=== PATIENT | male | born 1970 | race Hispanic/Latino ===

== ENCOUNTER 2018-04-14 07:58 | Day surgery (SDC) | payer BC ==
--- NOTE | 2018-04-10 16:34 | RAD REPORT ---
EXAM DESCRIPTION: Amina Kingsley (2 Views)04/10/2018 3:54 pm CLINICAL HISTORY: Hypertension/ preop for hernia surgery COMPARISON: None FINDINGS: The lungs appear clear of acute infiltrate. The heart is normal size IMPRESSION: No acute abnormalities displayed
[2018-04-10 16:35] LABS: Absolute Lymphocytes (CBC) 2.2 K/uL (0.7-4.9); Absolute Monocytes 0.7 K/uL (0.1-1.3); Absolute Neutrophil 7.2 K/uL (1.8-8.0); Basophils % 0.6 % (0-1.3); Eosinophils % 2.5 % (0-4.4); Hematocrit 46.9 % (39.6-49.0); MCH 29.8 pg (27.0-35.0); MCV 85.4 fL (80-100); MPV 9.8 fL (7.6-11.3); Monocytes % 6.9 % (3.3-12.3)
[2018-04-10 16:44] LABS: BUN Blood Urea Nitrogen 16 mg/dL (7-18); Bicarbonate 25 mmol/L (21-32); Glucose Level 240 mg/dL (74-106); Potassium 3.7 mmol/L (3.5-5.1); Sodium Level 138 mmol/L (136-145)
--- NOTE | 2018-04-10 16:51 | EKG ---
Test Date: 2018-04-10 Test Time: 15:47:33 Head Coach: NOELLE MEASUREMENT RESULTS: Intervals: Rate: 88 [place]: 160 QRSD: 90 QT: 370 QTc: 447 [place]: P: 7 [place]: 160 QRS: 16 T: 76 INTERPRETIVE STATEMENTS: Normal sinus rhythm Possible Left atrial enlargement Nonspecific T wave abnormality Abnormal ECG No previous ECG available for comparison Electronically Signed On 04-11-18 08:15:24 CDT by Sterling Rios
[2018-04-14] MEDS ORDERED: CEFAZOLIN/SWI 1gm 1 GM/10 ML SYR ONE (08:16)
[2018-04-14] MEDS ORDERED: Ringers Lactate 1,000 ML IV ONE (08:16)
[2018-04-14] MEDS ORDERED: SUCCINYLCHOLINE 20 MG/ML (10 ML) IV ONE (08:22)
[2018-04-14] MEDS ORDERED: PROPOFOL 200 MG/20 ML VIAL IV ONE ×2 (08:36→09:00)
[2018-04-14] MEDS ORDERED: GLYCOPYRROLATE 0.2 MG/ML SYR ONE ×2 (08:36)
[2018-04-14] MEDS ORDERED: MIDAZOLAM HCL 2 MG/2 ML INJ ONE (08:36)
[2018-04-14] MEDS ORDERED: ROCURONIUM 50 MG/5 ML VIAL IV ONE (08:36)
[2018-04-14] MEDS ORDERED: FENTANYL CITR 100 MCG/2 ML ONE ×2 (08:36→09:25)
[2018-04-14] MEDS ORDERED: LIDOCAINE 2% MPF 5 ML VIAL ONE (08:36)
[2018-04-14] MEDS ORDERED: ONDANSETRON HCL 40 MG/20 ML VIAL ONE (08:36)
[2018-04-14] MEDS ORDERED: Phenylephrine HCl 10 MG/ML 1 ML VIAL ONE (09:16)
[2018-04-14] MEDS ORDERED: NS 0.9% VIAL 20 ML ONE (09:17)
[2018-04-14] MEDS ORDERED: NEOSTIGMINE 1 MG/ML -5 ML SYRINGE ONE (09:28)
[2018-04-14] MEDS ORDERED: NA CHLORIDE 0.9% 1,000 ML ONE (10:05)
--- NOTE | 2018-04-14 10:17 | P.BOP ---
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 omemtum Anesthesia: General Complications: None Transferred to: Recovery Room Condition: Good
[2018-04-14] MEDS: MEPERIDINE HCL 50 MG/ML AMP ONE ×2 (10:32→10:37)
[2018-04-14] MEDS ORDERED: HYDROCODONE/APAP 5/325 MG TAB ONE (11:30)
--- NOTE | 2018-04-15 22:43 | DS ---
Date of Discharge: 04/14/2018 Diagnoses: Incarcerated umbilical hernia, morbid obesity. Procedures: Open repair of incarcerated umbilical hernia, partial omentectomy. Disposition: Home. Activity: As tolerated. No heavy lifting. Followup: Follow up in my office in 1 week. Call for appointment on [phone]. Keep the area dry fo r 48 hours, then may shower. Medications: See orders. BUD/ABRAHAM Voice ID: [id number] Report ID: [id number]
--- NOTE | 2018-04-15 22:51 | OP ---
Date of Procedure: 04/14/2018 Surgeon: Milton Hayward MD Preoperative Diagnoses: Incarcerated umbilical hernia, morbid obesity. Postoperative Diagnoses: Incarcerated umbilical hernia, morbid obesity. Procedure: Open repair of incarcerated tender umbilical hernia with partial omentectomy. Specimen: Hernia sac and omentum. Anesthesia: General plus local. Findings: Large amount of omentum in that hernia. He is morbidly obese, thick abdominal wall. Stil l has a large cavity in that area and through an incision put omentum outside. Omentum is all adhere d, cannot be reduced back into the abdominal cavity. So, partial omentectomy have to be done. Indications: This is a case of a male who came to us with morbid obesity with an increase in size an d tenderness, incarcerated umbilical hernia. Benefits, alternatives, and risks of repair with possib le mesh fully explained to the patient, which include but are not limited to infection, bleeding, dam age to adjacent structures, anesthesia complication, recurrence, MA, and even . He also underst ands this may not relieve any symptoms. He might need more than one surgical intervention. He under stood. Signed a consent. The patient was explained the importance of no heavy lifting and importanc e of losing weight in the future to diminish the chance of recurrence. Description Of Procedure: The patient was brought to the operating room, placed in supine position. Anesthesia was done without complication. A periumbilical incision was made. Incision was carried down to subcutaneous tissue. The patient is morbidly obese, thick abdominal wall. So, we have a lar ge hernia sac in that area and a large amount of tissue. When we opened the hernia, we noticed that the tissue was incarcerated omentum. Some of the adhesions were removed, but this is just a large am ount and cannot be reduced back into the abdominal cavity. So, I proceeded to ligate that and do a p artial omentectomy, divide this in about 7 different sections, and proceeded to ligate those between Jean. After that, the omentum was tied with 0 chromic 7 times, and the specimen sent to the patho logist. The area was irrigated. After reducing back this omentum pieces back into the abdominal cav ity, we made sure there is no bleeding. Once that was reduced, then we were able to identify the fas [place] edges. We cleaned the fascia edges, removed the hernia sac. We noticed we can approximate this without having to use mesh so we proceeded to close this with a #1 Prolene in a [id number] fashi on multiple times and the defect was closed without resistance. Subcutaneous tissue closed with 3-0 chromic and skin approximated with nuzhat. Sponge count and instrument counts were correct. The pa tient tolerated the procedure well. The patient was sent to recovery room in stable condition. BUD/ABRAHAM Voice ID: [id number] Report ID: [id number]
== END 2018-04-14 12:40 | disposition home or self-care (01) ==
LOC: OR 07:58
PROVIDERS: ATTEND Surgery
PROC: 0WQF0ZZ Repair Abdominal Wall, Open Approach (ICD-10-PCS; principal; 2018-04-14 08:30)
DX: K42.0 Umbilical hernia with obstruction, without gangrene (principal); E66.01 Morbid (severe) obesity due to excess calories; Z68.43 Body mass index [BMI] 50.0-59.9, adult; I10 Essential (primary) hypertension; G47.30 Sleep apnea, unspecified; K21.9 Gastro-esophageal reflux disease without esophagitis; Z83.3 Family history of diabetes mellitus; Z82.49 Family history of ischemic heart disease and other diseases of the circulatory system
CPT/HCPCS: 36415; 71046; 80048; 82962; 85025; 88302; 93005; J0330; J0690; J2175; J2250; J2370; J2405; J2710; J3010; J7030